=== PATIENT | male | born 1960 | race Caucasian/White ===

== ENCOUNTER 2018-12-05 02:56 | Emergency (ER) | payer SELFPAY ==
[~2018-12-05] VITALS: Ht 177.8 cm; Wt 100.0 kg
[2018-12-05 03:27] VITALS: BP 111/77
[2018-12-05] MEDS ORDERED: IBUPROFEN 600 MG TABLET PO ONE (04:15)
== END 2018-12-05 04:49 | disposition home or self-care (01) ==
LOC: EMS 02:58
DX: S50.01XA Contusion of right elbow, initial encounter (principal); F10.10 Alcohol abuse, uncomplicated; F17.210 Nicotine dependence, cigarettes, uncomplicated; Z89.422 Acquired absence of other left toe(s); Y90.0 Blood alcohol level of less than 20 mg/100 ml; W10.1XXA Fall (on)(from) sidewalk curb, initial encounter; Y93.89 Activity, other specified; Y92.488 Other paved roadways as the place of occurrence of the external cause; Y99.8 Other external cause status
CPT/HCPCS: 99406

== ENCOUNTER 2021-10-19 12:19 | Inpatient (IN) | payer MEDICAID, OTHER ==
[~2021-10-19] VITALS: Ht 177.8 cm; Wt 91.3 kg
[2021-10-19 13:26] LABS: BASOPHILS % (AUTO) 0.9 % (0.0-2.0); EOSINOPHILS % (AUTO) 2.2 % (1.0-6.0); HEMATOCRIT 42.9 % (41-53); HEMOGLOBIN 14.9 g/dL (13.5-17.5); LYMPHOCYTES % (AUTO) 25.1 % (22.0-44.0); MEAN CORPUSCULAR HEMOGLOBIN 31.2 pg (26.0-34.0); MEAN CORPUSCULAR HGB CONC 34.6 G/dL (31.0-37.0); MEAN CORPUSCULAR VOLUME 90 fL (80-100); MONOCYTES # (AUTO) 0.8 K/uL (0.1-1.0); MONOCYTES % (AUTO) 10.4 % (2.0-9.0); NEUTROPHILS # (AUTO) 4.8 K/uL (1.8-7.7); NEUTROPHILS % (AUTO) 61.4 % (40.0-70.0); PLATELET COUNT (AUTO) 392 K/uL (150-450); RED BLOOD CELL COUNT(AUTO) 4.76 MIL/uL (4.50-5.90); RED CELL DISTRIBUTION WIDTH 16.7 % (11.5-14.5)
[2021-10-19 13:34] LABS: CARBON DIOXIDE 31 mmol/L (22-29); CHLORIDE 101 mmol/L (98-107); POTASSIUM 4.4 mmol/L (3.5-5.1); SODIUM SERUM 137 mmol/L (136-145)
[2021-10-19 13:35] LABS: ANION GAP 5 mmol/L (8-16); CALCIUM, TOTAL 9.4 mg/dL (8.8-10.5); CREATININE 0.96 mg/dL (0.60-1.30); GLOMERULAR FILTR. RATE CALC > 60 mL/min (>60); GLUCOSE,RANDOM 89 mg/dL (70-110); UREA NITROGEN, BLOOD 20 mg/dL (7-18)
[2021-10-19 13:40] LABS: ALANINE AMINOTRANSFERASE 19 U/L (12-78); ALBUMIN 3.4 g/dL (3.4-5.0); ALKALINE PHOSPHATASE 79 U/L (46-116); ASPARTATE AMINOTRANSFERASE 10 U/L (15-37); BILIRUBIN,TOTAL 0.3 mg/dL (0.1-1.0); TOTAL PROTEIN, SERUM 8.2 g/dL (6.4-8.2)
[2021-10-19] MEDS ORDERED: LORazepam 2 MG TABLET PO PRN (14:45)
[2021-10-19 15:23] LABS: APPEARANCE,URINE CLEAR (CLEAR); BILIRUBIN,URINE NEGATIVE (NEGATIVE); GLUCOSE, URINE (UA) NEGATIVE (NEGATIVE); KETONES,URINE NEGATIVE (NEGATIVE); LEUKOCYTE ESTERASE ,URINE NEGATIVE (NEGATIVE); NITRATE,URINE NEGATIVE (NEGATIVE); OCCULT BLOOD,URINE NEGATIVE (NEGATIVE); PH,URINE 5.5 (5.0-8.0); PROTEIN,URINE TRACE (NEGATIVE); UROBILINOGEN,URINE 0.2 mg/dL (<=1.0)
[2021-10-19 15:28] LABS: AMPHET/METH SCREEN,URINE NEGATIVE (NEGATIVE); BARBITURATE SCREEN, URINE NEGATIVE (NEGATIVE); BENZODIAZEPINES SCREEN,URINE POSITIVE (NEGATIVE); CANNABINOID SCREEN,URINE NEGATIVE (NEGATIVE); COCAINE SCREEN,URINE NEGATIVE (NEGATIVE); METHADONE SCREEN, URINE NEGATIVE (NEGATIVE); OPIATE SCREEN,URINE NEGATIVE (NEGATIVE)
[2021-10-19 15:30] LABS: PHENCYCLIDINE SCREEN,URINE NEGATIVE (NEGATIVE)
[2021-10-19 15:57] LABS: COVID AG,FIA SOURCE NASAL SWAB
[2021-10-19 19:00] VITALS: BP 119/79
[2021-10-19 20:00] VITALS: BP 105/60
[2021-10-19 21:00] VITALS: BP 109/66
[2021-10-20] VITALS (9 sets, daily range): BP systolic 11–131; BP diastolic 57–79
[2021-10-20] MEDS ORDERED: LORazepam 2 MG TABLET PO PRN (07:00)
[2021-10-20 08:05] LABS: CHOL/HDL RATIO 3.6 (4.2-7.3); FREE T4 (FREE THYROXINE) 0.99 ng/dL (0.76-1.46); THYROID STIMULATING HORMONE 1.43 uIU/mL (0.36-3.74)
[2021-10-20] MEDS: LORazepam 2 MG TABLET PO SCH ×4 (08:09→20:37)
[2021-10-20] MEDS: FOLIC ACID 1 MG TABLET PO SCH (08:09)
[2021-10-20] MEDS: THIAMINE 100 MG TABLET PO SCH (08:09)
[2021-10-20] MEDS: MULTIVITAMINS WITH MINERALS, THERAPEUTIC TABLET PO SCH (08:09)
[2021-10-20] MEDS: BACITRACIN 28 GM OINTMENT TP SCH (08:10)
[2021-10-20] MEDS ORDERED: CloNIDine HCL 0.1 MG TABLET PO PRN (11:15)
[2021-10-20] MEDS ORDERED: DOCUSATE SODIUM 100 MG CAPSULE PO PRN (11:15)
[2021-10-20] MEDS ORDERED: MAG HYDROX/AL HYDROX/SIMETH ES 30 ML SUSPENSION UDCUP PO PRN (11:15)
[2021-10-20] MEDS ORDERED: GuaiFENesin/D-METHORPHAN [SUGAR-FREE] 200-20MG/10 ML SYRUP UDCUP PO PRN (11:15)
[2021-10-20] MEDS ORDERED: LOPERAMIDE HCL 2 MG CAPSULE PO PRN (11:15)
[2021-10-20] MEDS ORDERED: ONDANSETRON HCL 4 MG TABLET PO PRN (11:15)
[2021-10-20] MEDS ORDERED: PETROLATUM,WHITE 28 GM JELLY TP PRN (11:15)
[2021-10-20] MEDS: SERTRALINE HCL 50 MG TABLET PO SCH (11:27)
[2021-10-20] MEDS: ACETAMINOPHEN 325 MG TABLET PO PRN ×2 (12:14→20:37)
[2021-10-20] MEDS: IBUPROFEN 400 MG TABLET PO PRN (14:08)
[2021-10-20] MEDS: MAGNESIUM HYDROXIDE SUSPENSION 30 ML UDCUP PO PRN (21:31)
[2021-10-21] VITALS (12 sets, daily range): BP systolic 92–136; BP diastolic 61–88
[2021-10-21] MEDS: IBUPROFEN 400 MG TABLET PO PRN (04:11)
[2021-10-21] MEDS: HALOPERIDOL 5 MG TABLET PO PRN (04:28)
[2021-10-21] MEDS: MULTIVITAMINS WITH MINERALS, THERAPEUTIC TABLET PO SCH (08:22)
[2021-10-21] MEDS: THIAMINE 100 MG TABLET PO SCH (08:22)
[2021-10-21] MEDS: SERTRALINE HCL 50 MG TABLET PO SCH (08:22)
[2021-10-21] MEDS: FOLIC ACID 1 MG TABLET PO SCH (08:22)
[2021-10-21] MEDS: BACITRACIN 28 GM OINTMENT TP SCH (08:23)
[2021-10-21] MEDS: LORazepam 2 MG TABLET PO SCH ×4 (08:23→20:25)
[2021-10-21] MEDS: NICOTINE 14 MG/24 HOUR PATCH TD PRN (11:24)
[2021-10-21] MEDS: ACETAMINOPHEN 325 MG TABLET PO PRN (22:55)
[2021-10-22] VITALS (7 sets, daily range): BP systolic 105–136; BP diastolic 65–83
[2021-10-22] MEDS: ZOLPIDEM TARTRATE 10 MG TABLET PO PRN ×2 (00:06→21:51)
[2021-10-22] MEDS: MAGNESIUM HYDROXIDE SUSPENSION 30 ML UDCUP PO PRN (00:06)
[2021-10-22] MEDS ORDERED: LORazepam 1 MG TABLET PO PRN (07:00)
[2021-10-22] MEDS: LORazepam 1 MG TABLET PO SCH ×4 (08:25→20:02)
[2021-10-22] MEDS: THIAMINE 100 MG TABLET PO SCH ×2 (08:25→09:00)
[2021-10-22] MEDS: FOLIC ACID 1 MG TABLET PO SCH ×2 (08:25→09:00)
[2021-10-22] MEDS: MULTIVITAMINS WITH MINERALS, THERAPEUTIC TABLET PO SCH (08:25)
[2021-10-22] MEDS: SERTRALINE HCL 50 MG TABLET PO SCH (08:25)
[2021-10-22] MEDS: BACITRACIN 28 GM OINTMENT TP SCH (08:26)
[2021-10-22] MEDS: IBUPROFEN 400 MG TABLET PO PRN ×2 (08:49→22:06)
[2021-10-22] MEDS: ACETAMINOPHEN 325 MG TABLET PO PRN (14:37)
[2021-10-22] MEDS: ALBUTEROL SULFATE HFA 90 MCG/PUFF 8 GM INHALER IH PRN (22:30)
[2021-10-23] MEDS: LORazepam 2 MG TABLET PO PRN (00:13)
[2021-10-23 00:15] VITALS: BP 104/67
[2021-10-23 06:00] VITALS: BP 104/67
[2021-10-23] MEDS ORDERED: LORazepam 1 MG TABLET PO PRN (07:00)
[2021-10-23 08:03] VITALS: BP 115/77
[2021-10-23 08:26] VITALS: BP 115/77
[2021-10-23] MEDS: FOLIC ACID 1 MG TABLET PO SCH ×2 (08:55→09:04)
[2021-10-23] MEDS: THIAMINE 100 MG TABLET PO SCH ×2 (08:55→09:04)
[2021-10-23] MEDS: BACITRACIN 28 GM OINTMENT TP SCH (09:04)
[2021-10-23] MEDS: SERTRALINE HCL 50 MG TABLET PO SCH (09:04)
[2021-10-23] MEDS: MULTIVITAMINS WITH MINERALS, THERAPEUTIC TABLET PO SCH (09:04)
[2021-10-23] MEDS: ACETAMINOPHEN 325 MG TABLET PO PRN (11:50)
[2021-10-23 16:08] VITALS: BP 136/69
[2021-10-23 18:30] VITALS: BP 135/81
[2021-10-23] MEDS: ZOLPIDEM TARTRATE 10 MG TABLET PO PRN (20:44)
[2021-10-24 00:55] VITALS: BP 129/72
[2021-10-24 08:02] VITALS: BP 123/65
[2021-10-24] MEDS: MULTIVITAMINS WITH MINERALS, THERAPEUTIC TABLET PO SCH (08:19)
[2021-10-24] MEDS: BACITRACIN 28 GM OINTMENT TP SCH (08:19)
[2021-10-24] MEDS: THIAMINE 100 MG TABLET PO SCH ×2 (08:20)
[2021-10-24] MEDS: FOLIC ACID 1 MG TABLET PO SCH ×2 (08:20)
[2021-10-24] MEDS: SERTRALINE HCL 100 MG TABLET PO SCH (08:20)
[2021-10-24] MEDS: ACETAMINOPHEN 325 MG TABLET PO PRN ×2 (08:50→16:13)
[2021-10-24 10:57] LABS: GLUCOMETER DEV NAME(LOC) POC.BV
[2021-10-24] MEDS: IBUPROFEN 400 MG TABLET PO PRN (12:40)
[2021-10-24 16:10] VITALS: BP 141/82
[2021-10-24 16:11] VITALS: BP 148/88
[2021-10-24 17:13] VITALS: BP 139/79
[2021-10-24] MEDS: ZOLPIDEM TARTRATE 10 MG TABLET PO PRN (20:40)
[2021-10-25 04:15] VITALS: BP 129/79
[2021-10-25 08:07] VITALS: BP 113/68
[2021-10-25] MEDS: MULTIVITAMINS WITH MINERALS, THERAPEUTIC TABLET PO SCH (09:26)
[2021-10-25] MEDS: SERTRALINE HCL 100 MG TABLET PO SCH (09:26)
[2021-10-25] MEDS: FOLIC ACID 1 MG TABLET PO SCH (09:26)
[2021-10-25] MEDS: BACITRACIN 28 GM OINTMENT TP SCH (09:27)
[2021-10-25] MEDS: THIAMINE 100 MG TABLET PO SCH (09:27)
[2021-10-25] MEDS: LORazepam 2 MG TABLET PO PRN ×2 (11:39→16:43)
[2021-10-25 16:12] VITALS: BP 130/74
[2021-10-25] MEDS: NICOTINE 14 MG/24 HOUR PATCH TD PRN (16:15)
[2021-10-26 00:31] VITALS: BP 129/76
[2021-10-26] MEDS: ZOLPIDEM TARTRATE 10 MG TABLET PO PRN ×2 (00:58→20:01)
[2021-10-26] MEDS: IBUPROFEN 400 MG TABLET PO PRN ×2 (00:59→17:10)
[2021-10-26] MEDS: ALBUTEROL SULFATE HFA 90 MCG/PUFF 8 GM INHALER IH PRN ×2 (03:32→18:33)
[2021-10-26] MEDS: MULTIVITAMINS WITH MINERALS, THERAPEUTIC TABLET PO SCH (08:38)
[2021-10-26] MEDS: BACITRACIN 28 GM OINTMENT TP SCH (08:38)
[2021-10-26] MEDS: SERTRALINE HCL 100 MG TABLET PO SCH (08:38)
[2021-10-26] MEDS: FOLIC ACID 1 MG TABLET PO SCH (08:38)
[2021-10-26] MEDS: THIAMINE 100 MG TABLET PO SCH (08:38)
[2021-10-26 08:57] VITALS: BP 128/83
[2021-10-26] MEDS: LORazepam 2 MG TABLET PO PRN (12:49)
[2021-10-26 17:10] VITALS: BP 111/66
[2021-10-27 00:28] VITALS: BP 120/73
[2021-10-27] MEDS: IBUPROFEN 400 MG TABLET PO PRN (01:48)
[2021-10-27] MEDS: LORazepam 2 MG TABLET PO PRN ×2 (02:56→13:32)
[2021-10-27] MEDS: NICOTINE 14 MG/24 HOUR PATCH TD PRN (02:57)
[2021-10-27] MEDS: THIAMINE 100 MG TABLET PO SCH (08:16)
[2021-10-27] MEDS: FOLIC ACID 1 MG TABLET PO SCH (08:16)
[2021-10-27] MEDS: MULTIVITAMINS WITH MINERALS, THERAPEUTIC TABLET PO SCH (08:16)
[2021-10-27] MEDS: SERTRALINE HCL 100 MG TABLET PO SCH (08:16)
[2021-10-27 08:17] VITALS: BP 113/68
[2021-10-27] MEDS: BACITRACIN 28 GM OINTMENT TP SCH (08:17)
[2021-10-27 16:08] VITALS: BP 110/66
[2021-10-27] MEDS: ACETAMINOPHEN 325 MG TABLET PO PRN (20:05)
[2021-10-27] MEDS: ZOLPIDEM TARTRATE 10 MG TABLET PO PRN (20:05)
[2021-10-28 00:59] VITALS: BP 111/70
[2021-10-28 01:29] VITALS: BP 113/82
[2021-10-28] MEDS: ALBUTEROL SULFATE HFA 90 MCG/PUFF 8 GM INHALER IH PRN (01:38)
[2021-10-28] MEDS: IBUPROFEN 400 MG TABLET PO PRN ×2 (01:38→22:10)
[2021-10-28] MEDS: THIAMINE 100 MG TABLET PO SCH (08:37)
[2021-10-28] MEDS: FOLIC ACID 1 MG TABLET PO SCH (08:38)
[2021-10-28] MEDS: SERTRALINE HCL 100 MG TABLET PO SCH (08:38)
[2021-10-28] MEDS: MULTIVITAMINS WITH MINERALS, THERAPEUTIC TABLET PO SCH (08:38)
[2021-10-28] MEDS: BACITRACIN 28 GM OINTMENT TP SCH (08:39)
[2021-10-28 08:41] VITALS: BP 110/65
[2021-10-28] MEDS: LORazepam 2 MG TABLET PO PRN (14:57)
[2021-10-28 16:12] VITALS: BP 148/88
[2021-10-28] MEDS: ZOLPIDEM TARTRATE 10 MG TABLET PO PRN (20:20)
[2021-10-29 05:55] VITALS: BP 138/79
[2021-10-29 08:30] VITALS: BP 115/66
[2021-10-29] MEDS: MULTIVITAMINS WITH MINERALS, THERAPEUTIC TABLET PO SCH (08:37)
[2021-10-29] MEDS: FOLIC ACID 1 MG TABLET PO SCH (08:37)
[2021-10-29] MEDS: THIAMINE 100 MG TABLET PO SCH (08:37)
[2021-10-29] MEDS: SERTRALINE HCL 100 MG TABLET PO SCH (08:38)
[2021-10-29] MEDS: BACITRACIN 28 GM OINTMENT TP SCH (08:42)
[2021-10-29] MEDS: ACETAMINOPHEN 325 MG TABLET PO PRN ×2 (12:12→20:42)
[2021-10-29 13:49] VITALS: BP 138/83
[2021-10-29] MEDS: IBUPROFEN 400 MG TABLET PO PRN ×2 (13:49→23:38)
[2021-10-29 16:00] VITALS: BP 142/79
[2021-10-29] MEDS: ZOLPIDEM TARTRATE 10 MG TABLET PO PRN (20:42)
[2021-10-29 23:35] VITALS: BP 148/70
[2021-10-29] MEDS: LORazepam 2 MG TABLET PO PRN (23:38)
[2021-10-30] MEDS: BACITRACIN 28 GM OINTMENT TP SCH (08:14)
[2021-10-30] MEDS: MULTIVITAMINS WITH MINERALS, THERAPEUTIC TABLET PO SCH (08:14)
[2021-10-30] MEDS: THIAMINE 100 MG TABLET PO SCH (08:14)
[2021-10-30] MEDS: SERTRALINE HCL 100 MG TABLET PO SCH (08:14)
[2021-10-30] MEDS: FOLIC ACID 1 MG TABLET PO SCH (08:14)
[2021-10-30 08:23] VITALS: BP 132/79
[2021-10-30] MEDS: HALOPERIDOL 5 MG TABLET PO PRN (13:10)
[2021-10-30] MEDS: LORazepam 2 MG TABLET PO PRN (13:10)
[2021-10-30 16:14] VITALS: BP 129/79
[2021-10-30] MEDS: ACETAMINOPHEN 325 MG TABLET PO PRN (17:16)
[2021-10-30] MEDS: ZOLPIDEM TARTRATE 10 MG TABLET PO PRN (20:08)
[2021-10-31 00:12] VITALS: BP 128/76
[2021-10-31] MEDS: SERTRALINE HCL 100 MG TABLET PO SCH (08:09)
[2021-10-31] MEDS: THIAMINE 100 MG TABLET PO SCH (08:09)
[2021-10-31] MEDS: FOLIC ACID 1 MG TABLET PO SCH (08:09)
[2021-10-31] MEDS: BACITRACIN 28 GM OINTMENT TP SCH (08:10)
[2021-10-31] MEDS: MULTIVITAMINS WITH MINERALS, THERAPEUTIC TABLET PO SCH (08:10)
[2021-10-31 08:13] VITALS: BP 123/72
[2021-10-31 09:42] LABS: GLUCOMETER DEV NAME(LOC) POC.BV
[2021-10-31] MEDS: LORazepam 2 MG TABLET PO PRN ×2 (12:15→17:28)
[2021-10-31] MEDS: HALOPERIDOL 5 MG TABLET PO PRN (12:15)
[2021-10-31] MEDS: ACETAMINOPHEN 325 MG TABLET PO PRN (16:01)
[2021-10-31 16:06] VITALS: BP 101/66
[2021-10-31] MEDS: ZOLPIDEM TARTRATE 10 MG TABLET PO PRN (20:21)
[2021-10-31] MEDS: IBUPROFEN 400 MG TABLET PO PRN (21:47)
[2021-11-01 00:19] VITALS: BP 103/68
[2021-11-01 05:18] VITALS: BP 110/79
[2021-11-01] MEDS: IBUPROFEN 400 MG TABLET PO PRN (05:31)
[2021-11-01 08:08] VITALS: BP 118/81
[2021-11-01] MEDS: MULTIVITAMINS WITH MINERALS, THERAPEUTIC TABLET PO SCH (09:19)
[2021-11-01] MEDS: FOLIC ACID 1 MG TABLET PO SCH (09:19)
[2021-11-01] MEDS: SERTRALINE HCL 100 MG TABLET PO SCH (09:19)
[2021-11-01] MEDS: THIAMINE 100 MG TABLET PO SCH (09:20)
[2021-11-01] MEDS: BACITRACIN 28 GM OINTMENT TP SCH (09:49)
[2021-11-01] MEDS: LORazepam 2 MG TABLET PO PRN (11:32)
[2021-11-01 16:18] VITALS: BP 136/81
[2021-11-01] MEDS: HydrOXYzine PAMOATE 50 MG CAPSULE PO PRN ×2 (17:14→21:30)
[2021-11-01] MEDS: TraZODone HCL 50 MG TABLET PO SCH (20:08)
[2021-11-01] MEDS: ACETAMINOPHEN 325 MG TABLET PO PRN (20:10)
[2021-11-02 00:48] VITALS: BP 120/79
[2021-11-02 08:14] VITALS: BP 126/80
[2021-11-02] MEDS: MULTIVITAMINS WITH MINERALS, THERAPEUTIC TABLET PO SCH (08:29)
[2021-11-02] MEDS: SERTRALINE HCL 100 MG TABLET PO SCH (08:29)
[2021-11-02] MEDS: BACITRACIN 28 GM OINTMENT TP SCH (12:25)
[2021-11-02 16:09] VITALS: BP 132/65
[2021-11-02] MEDS: HydrOXYzine PAMOATE 50 MG CAPSULE PO PRN ×2 (16:19→20:58)
[2021-11-02] MEDS: ACETAMINOPHEN 325 MG TABLET PO PRN (16:37)
[2021-11-02] MEDS: TraZODone HCL 50 MG TABLET PO SCH (20:19)
[2021-11-03 00:05] VITALS: BP 107/67
[2021-11-03 08:01] VITALS: BP 108/63
[2021-11-03] MEDS: MULTIVITAMINS WITH MINERALS, THERAPEUTIC TABLET PO SCH (08:51)
[2021-11-03] MEDS: SERTRALINE HCL 100 MG TABLET PO SCH (08:51)
[2021-11-03] MEDS: BACITRACIN 28 GM OINTMENT TP SCH (08:52)
[2021-11-03] MEDS: HydrOXYzine PAMOATE 50 MG CAPSULE PO PRN ×2 (14:35→20:55)
[2021-11-03 16:08] VITALS: BP 127/84
[2021-11-03] MEDS: IBUPROFEN 400 MG TABLET PO PRN (16:45)
[2021-11-03] MEDS: TraZODone HCL 50 MG TABLET PO SCH (20:04)
[2021-11-04] MEDS: HALOPERIDOL 5 MG TABLET PO PRN (00:11)
[2021-11-04 01:05] VITALS: BP 125/79
[2021-11-04 08:06] VITALS: BP 110/62
[2021-11-04] MEDS: BACITRACIN 28 GM OINTMENT TP SCH (08:15)
[2021-11-04] MEDS: SERTRALINE HCL 100 MG TABLET PO SCH (08:15)
[2021-11-04] MEDS: MULTIVITAMINS WITH MINERALS, THERAPEUTIC TABLET PO SCH (08:15)
[2021-11-04] MEDS: ACETAMINOPHEN 325 MG TABLET PO PRN (12:26)
[2021-11-04] MEDS: HydrOXYzine PAMOATE 50 MG CAPSULE PO PRN ×2 (14:02→18:21)
[2021-11-04] MEDS: NICOTINE 14 MG/24 HOUR PATCH TD PRN (15:25)
[2021-11-04 16:02] VITALS: BP 120/77
[2021-11-04] MEDS: TraZODone HCL 50 MG TABLET PO SCH (20:02)
[2021-11-05 01:31] VITALS: BP 116/67
[2021-11-05] MEDS: SERTRALINE HCL 100 MG TABLET PO SCH (08:03)
[2021-11-05] MEDS: MULTIVITAMINS WITH MINERALS, THERAPEUTIC TABLET PO SCH (08:03)
[2021-11-05] MEDS: BACITRACIN 28 GM OINTMENT TP SCH (08:04)
[2021-11-05 08:11] VITALS: BP 115/57
[2021-11-05] MEDS: HydrOXYzine PAMOATE 50 MG CAPSULE PO PRN (11:58)
[2021-11-05 16:11] VITALS: BP 110/69
[2021-11-05] MEDS: TraZODone HCL 50 MG TABLET PO SCH (20:01)
[2021-11-06 01:20] VITALS: BP 111/67
[2021-11-06 08:02] VITALS: BP 126/64
[2021-11-06] MEDS: SERTRALINE HCL 100 MG TABLET PO SCH (08:46)
[2021-11-06] MEDS: MULTIVITAMINS WITH MINERALS, THERAPEUTIC TABLET PO SCH (08:46)
[2021-11-06] MEDS: BACITRACIN 28 GM OINTMENT TP SCH (08:47)
[2021-11-06] MEDS: HydrOXYzine PAMOATE 50 MG CAPSULE PO PRN ×2 (12:34→17:11)
[2021-11-06 16:11] VITALS: BP 131/67
[2021-11-06] MEDS: TraZODone HCL 50 MG TABLET PO SCH (20:21)
[2021-11-07 06:51] VITALS: BP 117/67
[2021-11-07 08:17] VITALS: BP 105/62
[2021-11-07 08:46] LABS: GLUCOMETER DEV NAME(LOC) POC.BV
[2021-11-07] MEDS: SERTRALINE HCL 100 MG TABLET PO SCH (09:00)
[2021-11-07] MEDS: BACITRACIN 28 GM OINTMENT TP SCH (09:00)
[2021-11-07] MEDS: MULTIVITAMINS WITH MINERALS, THERAPEUTIC TABLET PO SCH (09:00)
[2021-11-07 16:24] VITALS: BP 121/75
[2021-11-07] MEDS: TraZODone HCL 50 MG TABLET PO SCH (20:36)
[2021-11-07] MEDS: HydrOXYzine PAMOATE 50 MG CAPSULE PO PRN (20:36)
[2021-11-07] MEDS: NICOTINE 14 MG/24 HOUR PATCH TD PRN (20:37)
[2021-11-08 01:32] VITALS: BP 118/72
[2021-11-08 04:32] VITALS: BP 110/65
[2021-11-08] MEDS: IBUPROFEN 400 MG TABLET PO PRN (04:37)
[2021-11-08 08:11] VITALS: BP 102/60
[2021-11-08] MEDS: SERTRALINE HCL 100 MG TABLET PO SCH (10:31)
[2021-11-08] MEDS: MULTIVITAMINS WITH MINERALS, THERAPEUTIC TABLET PO SCH (10:31)
[2021-11-08] MEDS: BACITRACIN 28 GM OINTMENT TP SCH (10:33)
[2021-11-08] MEDS: ACETAMINOPHEN 325 MG TABLET PO PRN (14:30)
[2021-11-08 16:06] VITALS: BP 120/83
[2021-11-08] MEDS: TraZODone HCL 50 MG TABLET PO SCH (20:31)
[2021-11-09 00:27] VITALS: BP 123/79
[2021-11-09] MEDS: IBUPROFEN 400 MG TABLET PO PRN (00:36)
[2021-11-09] MEDS: BENZOCAINE 10% 7 GM GEL TP PRN (04:45)
[2021-11-09 08:14] VITALS: BP 97/67
[2021-11-09] MEDS: SERTRALINE HCL 100 MG TABLET PO SCH (08:38)
[2021-11-09] MEDS: BACITRACIN 28 GM OINTMENT TP SCH (08:38)
[2021-11-09] MEDS: MULTIVITAMINS WITH MINERALS, THERAPEUTIC TABLET PO SCH (08:38)
[2021-11-09 16:08] VITALS: BP 133/82
[2021-11-09] MEDS: TraZODone HCL 50 MG TABLET PO SCH (20:20)
[2021-11-09] MEDS: HydrOXYzine PAMOATE 50 MG CAPSULE PO PRN (20:35)
[2021-11-09] MEDS: HALOPERIDOL 5 MG TABLET PO PRN (22:27)
[2021-11-10 04:05] VITALS: BP 118/62
[2021-11-10 08:26] VITALS: BP 116/77
[2021-11-10] MEDS: MULTIVITAMINS WITH MINERALS, THERAPEUTIC TABLET PO SCH (08:30)
[2021-11-10] MEDS: BACITRACIN 28 GM OINTMENT TP SCH (08:30)
[2021-11-10] MEDS: SERTRALINE HCL 100 MG TABLET PO SCH (08:30)
[2021-11-10 16:07] VITALS: BP 125/75
[2021-11-10] MEDS: TraZODone HCL 50 MG TABLET PO SCH (20:04)
[2021-11-10] MEDS: HALOPERIDOL 5 MG TABLET PO PRN (20:04)
[2021-11-10] MEDS: HydrOXYzine PAMOATE 50 MG CAPSULE PO PRN (21:35)
[2021-11-11] VITALS: BP 110/65
[2021-11-11] MEDS: HALOPERIDOL 5 MG TABLET PO PRN (00:14)
[2021-11-11] MEDS: BACITRACIN 28 GM OINTMENT TP SCH (08:19)
[2021-11-11] MEDS: SERTRALINE HCL 100 MG TABLET PO SCH (08:19)
[2021-11-11] MEDS: MULTIVITAMINS WITH MINERALS, THERAPEUTIC TABLET PO SCH (08:19)
[2021-11-11 08:24] VITALS: BP 118/61
[2021-11-11 16:04] VITALS: BP 118/72
[2021-11-11] MEDS: TraZODone HCL 50 MG TABLET PO SCH (20:01)
[2021-11-12 05:49] VITALS: BP 120/74
[2021-11-12 08:23] VITALS: BP 110/63
[2021-11-12] MEDS: SERTRALINE HCL 100 MG TABLET PO SCH (08:30)
[2021-11-12] MEDS: MULTIVITAMINS WITH MINERALS, THERAPEUTIC TABLET PO SCH (08:30)
[2021-11-12] MEDS: BACITRACIN 28 GM OINTMENT TP SCH (08:31)
[2021-11-12 16:02] VITALS: BP 127/94
[2021-11-12] MEDS: TraZODone HCL 50 MG TABLET PO SCH (20:36)
[2021-11-12] MEDS: MELATONIN 5 MG TABLET PO SCH (20:36)
[2021-11-13 05:14] VITALS: BP 124/82
[2021-11-13] MEDS: HydrOXYzine PAMOATE 50 MG CAPSULE PO PRN ×2 (05:21→22:14)
[2021-11-13] MEDS: SERTRALINE HCL 100 MG TABLET PO SCH (08:10)
[2021-11-13] MEDS: MULTIVITAMINS WITH MINERALS, THERAPEUTIC TABLET PO SCH (08:10)
[2021-11-13] MEDS: BACITRACIN 28 GM OINTMENT TP SCH (08:12)
[2021-11-13 08:16] VITALS: BP 110/66
[2021-11-13 16:06] VITALS: BP 110/69
[2021-11-13] MEDS: TraZODone HCL 50 MG TABLET PO SCH (20:33)
[2021-11-13] MEDS: MELATONIN 5 MG TABLET PO SCH (20:33)
[2021-11-14] MEDS: SERTRALINE HCL 100 MG TABLET PO SCH (08:09)
[2021-11-14] MEDS: BACITRACIN 28 GM OINTMENT TP SCH (08:09)
[2021-11-14] MEDS: MULTIVITAMINS WITH MINERALS, THERAPEUTIC TABLET PO SCH (08:09)
[2021-11-14 08:11] VITALS: BP 124/70
[2021-11-14 08:41] LABS: GLUCOMETER DEV NAME(LOC) POC.BV
[2021-11-14 16:07] VITALS: BP 109/68
[2021-11-14] MEDS: HydrOXYzine PAMOATE 50 MG CAPSULE PO PRN (16:10)
[2021-11-14] MEDS: MELATONIN 5 MG TABLET PO SCH (20:01)
[2021-11-14] MEDS: TraZODone HCL 50 MG TABLET PO SCH (20:01)
[2021-11-15 00:30] VITALS: BP 111/70
[2021-11-15 08:06] VITALS: BP 138/78
[2021-11-15] MEDS: MULTIVITAMINS WITH MINERALS, THERAPEUTIC TABLET PO SCH (09:20)
[2021-11-15] MEDS: SERTRALINE HCL 100 MG TABLET PO SCH (09:21)
[2021-11-15] MEDS: BACITRACIN 28 GM OINTMENT TP SCH (09:21)
[2021-11-15] MEDS: BENZOCAINE 10% 7 GM GEL TP PRN (13:45)
[2021-11-15 16:10] VITALS: BP 112/61
[2021-11-15] MEDS: HydrOXYzine PAMOATE 50 MG CAPSULE PO PRN (17:28)
[2021-11-15] MEDS: MELATONIN 5 MG TABLET PO SCH (20:37)
[2021-11-15] MEDS: TraZODone HCL 50 MG TABLET PO SCH (20:37)
[2021-11-16 00:59] VITALS: BP 126/68
[2021-11-16] MEDS: NICOTINE 14 MG/24 HOUR PATCH TD PRN (01:49)
[2021-11-16 01:55] VITALS: BP 147/89
[2021-11-16] MEDS: HALOPERIDOL 5 MG TABLET PO PRN ×4 (02:03→20:01)
[2021-11-16] MEDS: BACITRACIN 28 GM OINTMENT TP SCH (08:10)
[2021-11-16] MEDS: MULTIVITAMINS WITH MINERALS, THERAPEUTIC TABLET PO SCH (08:10)
[2021-11-16] MEDS: SERTRALINE HCL 100 MG TABLET PO SCH (08:10)
[2021-11-16] MEDS: HydrOXYzine PAMOATE 50 MG CAPSULE PO PRN ×2 (08:10→12:10)
[2021-11-16 08:30] VITALS: BP 104/64
[2021-11-16 16:02] VITALS: BP 102/62
[2021-11-16] MEDS: TraZODone HCL 50 MG TABLET PO SCH (20:01)
[2021-11-16] MEDS: MELATONIN 5 MG TABLET PO SCH (20:01)
[2021-11-17 00:35] VITALS: BP 107/63
[2021-11-17] MEDS: BENZOCAINE 10% 7 GM GEL TP PRN (01:27)
[2021-11-17 01:44] VITALS: BP 130/79
[2021-11-17] MEDS: HydrOXYzine PAMOATE 50 MG CAPSULE PO PRN ×2 (01:46→08:07)
[2021-11-17] MEDS: HALOPERIDOL 5 MG TABLET PO PRN (08:07)
[2021-11-17] MEDS: MULTIVITAMINS WITH MINERALS, THERAPEUTIC TABLET PO SCH (08:07)
[2021-11-17] MEDS: SERTRALINE HCL 100 MG TABLET PO SCH (08:07)
[2021-11-17] MEDS: BACITRACIN 28 GM OINTMENT TP SCH (08:08)
[2021-11-17 08:10] VITALS: BP 112/59
[2021-11-17 16:17] VITALS: BP 126/73
[2021-11-17] MEDS: TraZODone HCL 50 MG TABLET PO SCH (20:08)
[2021-11-17] MEDS: MELATONIN 5 MG TABLET PO SCH (20:08)
[2021-11-18 00:27] VITALS: BP 117/68
[2021-11-18] MEDS: NICOTINE 14 MG/24 HOUR PATCH TD PRN (00:29)
[2021-11-18] MEDS: HydrOXYzine PAMOATE 50 MG CAPSULE PO PRN ×3 (00:40→21:29)
[2021-11-18 08:15] VITALS: BP 104/70
[2021-11-18] MEDS: SERTRALINE HCL 100 MG TABLET PO SCH (08:19)
[2021-11-18] MEDS: MULTIVITAMINS WITH MINERALS, THERAPEUTIC TABLET PO SCH (08:19)
[2021-11-18] MEDS: BACITRACIN 28 GM OINTMENT TP SCH (08:20)
[2021-11-18 16:12] VITALS: BP 117/76
[2021-11-18] MEDS: MELATONIN 5 MG TABLET PO SCH (20:06)
[2021-11-18] MEDS: TraZODone HCL 50 MG TABLET PO SCH (20:06)
[2021-11-18] MEDS: HALOPERIDOL 5 MG TABLET PO PRN (23:06)
[2021-11-19 01:53] VITALS: BP 123/85
[2021-11-19 08:07] VITALS: BP 131/77
[2021-11-19] MEDS: MULTIVITAMINS WITH MINERALS, THERAPEUTIC TABLET PO SCH (08:40)
[2021-11-19] MEDS: SERTRALINE HCL 100 MG TABLET PO SCH (08:41)
[2021-11-19] MEDS: BACITRACIN 28 GM OINTMENT TP SCH (08:42)
[2021-11-19 16:07] VITALS: BP 128/77
[2021-11-19] MEDS: TraZODone HCL 50 MG TABLET PO SCH (20:10)
[2021-11-19] MEDS: MELATONIN 5 MG TABLET PO SCH (20:10)
[2021-11-20] MEDS: HALOPERIDOL 5 MG TABLET PO PRN ×2 (05:16→11:12)
[2021-11-20 05:18] VITALS: BP 105/73
[2021-11-20] MEDS: SERTRALINE HCL 100 MG TABLET PO SCH (08:10)
[2021-11-20] MEDS: MULTIVITAMINS WITH MINERALS, THERAPEUTIC TABLET PO SCH (08:10)
[2021-11-20] MEDS: HydrOXYzine PAMOATE 50 MG CAPSULE PO PRN ×2 (08:10→12:20)
[2021-11-20 08:14] VITALS: BP 127/82
[2021-11-20 16:06] VITALS: BP 120/74
[2021-11-20] MEDS: TraZODone HCL 50 MG TABLET PO SCH (20:33)
[2021-11-20] MEDS: MELATONIN 5 MG TABLET PO SCH (20:33)
[2021-11-21 00:10] VITALS: BP 128/77
[2021-11-21 08:36] LABS: GLUCOMETER DEV NAME(LOC) POC.BV
[2021-11-21 08:37] VITALS: BP 140/77
[2021-11-21] MEDS: MULTIVITAMINS WITH MINERALS, THERAPEUTIC TABLET PO SCH (09:09)
[2021-11-21] MEDS: SERTRALINE HCL 100 MG TABLET PO SCH (09:09)
[2021-11-21] MEDS: HydrOXYzine PAMOATE 50 MG CAPSULE PO PRN (15:43)
[2021-11-21] MEDS ORDERED: INFLUENZA VIRUS VACCINE QVS 2021-22 (6MO+)/PF 60 MCG/0.5 ML SYRINGE IM. ONE (16:00)
[2021-11-21 16:07] VITALS: BP 115/75
[2021-11-21] MEDS: MELATONIN 5 MG TABLET PO SCH (20:04)
[2021-11-21] MEDS: TraZODone HCL 50 MG TABLET PO SCH (20:04)
[2021-11-21] MEDS: HALOPERIDOL 5 MG TABLET PO PRN (20:04)
[2021-11-22 06:16] VITALS: BP 120/74
[2021-11-22 08:07] VITALS: BP 121/73
[2021-11-22] MEDS: NICOTINE 14 MG/24 HOUR PATCH TD PRN (08:18)
[2021-11-22] MEDS: SERTRALINE HCL 100 MG TABLET PO SCH (08:18)
[2021-11-22] MEDS: HydrOXYzine PAMOATE 50 MG CAPSULE PO PRN ×3 (08:18→17:38)
[2021-11-22] MEDS: MULTIVITAMINS WITH MINERALS, THERAPEUTIC TABLET PO SCH (08:18)
[2021-11-22] MEDS: HALOPERIDOL 5 MG TABLET PO PRN ×2 (10:10→14:10)
[2021-11-22 16:05] VITALS: BP 106/69
[2021-11-22 17:38] VITALS: BP 132/70
[2021-11-22] MEDS: MELATONIN 5 MG TABLET PO SCH (20:17)
[2021-11-22] MEDS: TraZODone HCL 50 MG TABLET PO SCH (20:17)
[2021-11-23 06:01] VITALS: BP 119/72
[2021-11-23] MEDS: MULTIVITAMINS WITH MINERALS, THERAPEUTIC TABLET PO SCH (08:15)
[2021-11-23] MEDS: HydrOXYzine PAMOATE 50 MG CAPSULE PO PRN (08:15)
[2021-11-23] MEDS: HALOPERIDOL 5 MG TABLET PO PRN (08:15)
[2021-11-23] MEDS: SERTRALINE HCL 100 MG TABLET PO SCH (08:15)
[2021-11-23 09:01] VITALS: BP 116/70
[2021-11-23] MEDS ORDERED: MELA5TAB40 PO (10:15)
[2021-11-23] MEDS ORDERED: SERT-440 PO (10:15)
[2021-11-23] MEDS ORDERED: TRAZ-252 PO (10:15)
[2021-11-23 16:05] VITALS: BP 108/73
== END 2021-11-23 17:05 | disposition home or self-care (01) | DRG 751 ==
LOC: EMS 12:22 → B2S 15:29
PROVIDERS: ADMIT Psychiatry & Neurology Psychiatry; ATTEND Psychiatry & Neurology Psychiatry
DX: F33.2 Major depressive disorder, recurrent severe without psychotic features (principal); F22 Delusional disorders; R45.851 Suicidal ideations; R56.9 Unspecified convulsions; E66.01 Morbid (severe) obesity due to excess calories; F10.20 Alcohol dependence, uncomplicated; I10 Essential (primary) hypertension; Z20.822 Contact with and (suspected) exposure to COVID-19; F17.210 Nicotine dependence, cigarettes, uncomplicated; S80.02XA Contusion of left knee, initial encounter; W18.39XA Other fall on same level, initial encounter; Y93.89 Activity, other specified; Y92.89 Other specified places as the place of occurrence of the external cause; Z68.28 Body mass index [BMI] 28.0-28.9, adult; Z59.00 Homelessness unspecified; Y99.8 Other external cause status
CPT/HCPCS: 80053; 80061; 81003; 84439; 84443; 85025; 99285; G0480; J3535; Q9967

== ENCOUNTER 2023-06-07 16:54 | Inpatient (IN) | payer MEDICAID ==
[~2023-06-07] VITALS: Ht 177.8 cm; Wt 84.0 kg
[~2023-06-07 16:54] MED LIST: MELA5TAB40 PO; SERT-440 PO; TRAZ-252 PO
[2023-06-07] MEDS ORDERED: SODIUM CHLORIDE 0.9% 1,000 ML IV ONE ×2 (18:00→20:15)
[2023-06-07] MEDS ORDERED: ONDANSETRON HCL 4 MG/2 ML VIAL IVP ONE (18:00)
[2023-06-07 18:14] LABS: BASOPHILS % (AUTO) 0.7 % (0.0-2.0); EOSINOPHILS % (AUTO) 2.5 % (1.0-6.0); HEMATOCRIT 39.6 % (41-53); HEMOGLOBIN 13.3 g/dL (13.5-17.5); LYMPHOCYTES # (AUTO) 1.5 K/uL (1.0-4.8); LYMPHOCYTES % (AUTO) 19.1 % (22.0-44.0); MEAN CORPUSCULAR HEMOGLOBIN 31.9 pg (26.0-34.0); MEAN CORPUSCULAR HGB CONC 33.5 G/dL (31.0-37.0); MEAN CORPUSCULAR VOLUME 95 fL (80-100); MONOCYTES # (AUTO) 0.8 K/uL (0.1-1.0); MONOCYTES % (AUTO) 10.7 % (2.0-9.0); NEUTROPHILS # (AUTO) 5.2 K/uL (1.8-7.7); PLATELET COUNT (AUTO) 277 K/uL (150-450); RED BLOOD CELL COUNT(AUTO) 4.16 MIL/uL (4.50-5.90); RED CELL DISTRIBUTION WIDTH 15.4 % (11.5-14.5); WHITE BLOOD COUNT (AUTO) 7.7 K/uL (4.5-11.0)
[2023-06-07 18:20] LABS: ANION GAP 5 mmol/L (8-16); CALCIUM, TOTAL 8.7 mg/dL (8.8-10.5); CARBON DIOXIDE 31 mmol/L (22-29); CHLORIDE 103 mmol/L (98-107); CREATININE 0.82 mg/dL (0.60-1.30); GLOMERULAR FILTR. RATE CALC > 60 mL/min (>60); GLUCOSE,RANDOM 121 mg/dL (70-110); POTASSIUM 4.3 mmol/L (3.5-5.1); SODIUM SERUM 139 mmol/L (136-145); UREA NITROGEN, BLOOD 20 mg/dL (7-18)
[2023-06-07 18:24] LABS: COVID AG,FIA SOURCE NASAL SWAB
[2023-06-07 18:26] LABS: ALANINE AMINOTRANSFERASE 34 U/L (12-78); ALBUMIN 2.9 g/dL (3.4-5.0); ALKALINE PHOSPHATASE 77 U/L (46-116); ASPARTATE AMINOTRANSFERASE 39 U/L (15-37); BILIRUBIN,TOTAL 0.3 mg/dL (0.1-1.0); LIPASE 36 U/L (16-77); TOTAL PROTEIN, SERUM 6.2 g/dL (6.4-8.2)
[2023-06-07 18:29] LABS: ALCOHOL, BLOOD (SERUM) < 3 mg/dL (0-10)
[2023-06-07 18:32] LABS: LACTIC ACID 1.3 mmol/L (0.4-2.0)
[2023-06-07 18:56] LABS: TROPONIN I-HIGH SENSITIVITY 12 ng/L (<76)
[2023-06-07 19:06] LABS: SARS-COV2 (COVID) ANTIGEN,FIA Negative (Negative)
[2023-06-07] MEDS ORDERED: ONDANSETRON HCL 4 MG/2 ML VIAL IVP PRN (20:00)
[2023-06-07] MEDS ORDERED: MAGNESIUM HYDROXIDE SUSPENSION 30 ML UDCUP PO PRN (20:00)
[2023-06-07] MEDS ORDERED: MAGNESIUM SULFATE 2 GM/WATER 50 ML IV PRN (20:15)
[2023-06-07] MEDS ORDERED: MAGNESIUM OXIDE 400 MG TABLET PO PRN (20:15)
[2023-06-07] MEDS ORDERED: MAGNESIUM SULFATE 4 GM/WATER 100 ML IV PRN (20:15)
[2023-06-07] MEDS: FAMOTIDINE 20 MG TABLET PO SCH (22:46)
[2023-06-07 22:57] VITALS: BP 147/90; PULSE 74; RESP 20; TEMP 99.2
[2023-06-08 04:46] VITALS: BP 149/89; PULSE 79; RESP 20; TEMP 99.6
[2023-06-08] MEDS: LORazepam 2 MG/ML VIAL IVP PRN ×2 (05:21→16:31)
[2023-06-08] MEDS: ACETAMINOPHEN 325 MG TABLET PO PRN ×2 (05:22→17:48)
[2023-06-08 07:48] VITALS: BP 115/58; PULSE 76; RESP 20; TEMP 98.1
[2023-06-08] MEDS: HEPARIN SODIUM,PORCINE 5,000 UNITS/ML VIAL SQ SCH ×3 (08:29→16:30)
[2023-06-08] MEDS: FAMOTIDINE 20 MG TABLET PO SCH ×2 (08:29→20:26)
[2023-06-08] MEDS: MULTIVITAMINS WITH MINERALS, THERAPEUTIC TABLET PO SCH (08:29)
[2023-06-08 11:31] VITALS: BP 96/70; PULSE 65; RESP 20; TEMP 98.8
[2023-06-08] MEDS: TraMADol HCL 50 MG TABLET PO PRN ×2 (12:07→20:27)
[2023-06-08 15:46] VITALS: BP 125/72; PULSE 61; RESP 20; TEMP 98.4
[2023-06-08] MEDS: NICOTINE 21 MG/24 HOUR PATCH TD SCH (17:47)
[2023-06-08] MEDS: ZOLPIDEM TARTRATE 5 MG TABLET PO PRN (20:33)
[2023-06-08 21:15] VITALS: BP 152/94; PULSE 67; RESP 20; TEMP 97.5
[2023-06-08 23:55] VITALS: BP 143/85; PULSE 67; RESP 20; TEMP 98.1
[2023-06-09] MEDS: HEPARIN SODIUM,PORCINE 5,000 UNITS/ML VIAL SQ SCH ×4 (00:43→23:46)
[2023-06-09] MEDS: ACETAMINOPHEN 325 MG TABLET PO PRN ×3 (02:51→20:32)
[2023-06-09] MEDS: TraMADol HCL 50 MG TABLET PO PRN ×2 (04:10→13:00)
[2023-06-09 04:43] VITALS: BP 138/84; PULSE 69; RESP 20; TEMP 97.8
[2023-06-09 08:26] VITALS: BP 154/92; PULSE 67; RESP 18; TEMP 98
[2023-06-09] MEDS: NICOTINE 21 MG/24 HOUR PATCH TD SCH (08:50)
[2023-06-09] MEDS: FAMOTIDINE 20 MG TABLET PO SCH ×2 (08:50→20:33)
[2023-06-09] MEDS: MULTIVITAMINS WITH MINERALS, THERAPEUTIC TABLET PO SCH (08:50)
[2023-06-09 16:00] VITALS: BP 132/82; PULSE 61; RESP 18; TEMP 98.2
[2023-06-09] MEDS: ZOLPIDEM TARTRATE 5 MG TABLET PO PRN (20:34)
[2023-06-09 20:36] VITALS: BP 155/92; PULSE 66; RESP 18; TEMP 98.2
[2023-06-10 00:50] VITALS: BP 146/86; PULSE 65; RESP 18; TEMP 98.1
[2023-06-10 05:09] VITALS: BP 148/88; PULSE 66; RESP 18; TEMP 98
[2023-06-10 07:25] VITALS: BP 132/77; PULSE 84; RESP 17; TEMP 98.1
[2023-06-10] MEDS: TraMADol HCL 50 MG TABLET PO PRN ×2 (07:35→16:37)
[2023-06-10] MEDS: FAMOTIDINE 20 MG TABLET PO SCH ×2 (07:36→19:56)
[2023-06-10] MEDS: MULTIVITAMINS WITH MINERALS, THERAPEUTIC TABLET PO SCH (07:36)
[2023-06-10] MEDS: NICOTINE 21 MG/24 HOUR PATCH TD SCH (07:37)
[2023-06-10] MEDS: HEPARIN SODIUM,PORCINE 5,000 UNITS/ML VIAL SQ SCH ×3 (07:37→23:03)
[2023-06-10 11:30] VITALS: BP 107/61; PULSE 66; RESP 18; TEMP 98.5
[2023-06-10 15:20] VITALS: BP 147/93; PULSE 65; RESP 18; TEMP 98.2
[2023-06-10 20:14] VITALS: BP 111/71; PULSE 71; RESP 18; TEMP 98.6
[2023-06-11 03:49] VITALS: BP 131/67; PULSE 66; RESP 20; TEMP 97.7
[2023-06-11] MEDS: TraMADol HCL 50 MG TABLET PO PRN (06:30)
[2023-06-11 08:00] VITALS: BP 91/47; PULSE 89; RESP 19; TEMP 98.1
[2023-06-11] MEDS: HEPARIN SODIUM,PORCINE 5,000 UNITS/ML VIAL SQ SCH (09:42)
[2023-06-11] MEDS: MULTIVITAMINS WITH MINERALS, THERAPEUTIC TABLET PO SCH (09:42)
[2023-06-11] MEDS: FAMOTIDINE 20 MG TABLET PO SCH (09:42)
[2023-06-11] MEDS: NICOTINE 21 MG/24 HOUR PATCH TD SCH (09:51)
[2023-06-11] MEDS ORDERED: FAMO20 PO (12:43)
[2023-06-11] MEDS ORDERED: MULT-248 PO (12:44)
[2023-06-11] MEDS ORDERED: HEPA500018 SQ (12:44)
[2023-06-11] MEDS ORDERED: NICO-803 TD (12:45)
[2023-06-11] MEDS ORDERED: ACET-2247 PO (12:46)
[2023-06-11] MEDS ORDERED: MAGN-169 PO (12:47)
[2023-06-11] MEDS ORDERED: MAGN400T57 PO (12:48)
== END 2023-06-11 14:05 | DRG 775 ==
LOC: EMS 16:54 → 5S 22:13 → 6S 06-10 18:35
PROVIDERS: ADMIT Internal Medicine; ATTEND Internal Medicine
DX: F10.239 Alcohol dependence with withdrawal, unspecified (principal); E44.0 Moderate protein-calorie malnutrition; K70.30 Alcoholic cirrhosis of liver without ascites; I10 Essential (primary) hypertension; M19.90 Unspecified osteoarthritis, unspecified site; Z20.822 Contact with and (suspected) exposure to COVID-19; Z68.26 Body mass index [BMI] 26.0-26.9, adult; F32.9 Major depressive disorder, single episode, unspecified; J45.909 Unspecified asthma, uncomplicated; Z59.00 Homelessness unspecified; Z87.891 Personal history of nicotine dependence; Z88.7 Allergy status to serum and vaccine; Z79.899 Other long term (current) drug therapy
CPT/HCPCS: 71045; 80053; 82040; 83605; 83690; 83735; 84484; 85025; 93005; 97110; 97116; 97162; 97530; 99285; G0378; G0480; J1644; J2060; J2405; J7030; 36415-L1; 36415-TC